=== PATIENT | female | born 1940 | race Caucasian/White ===

== ENCOUNTER 2022-07-08 10:12 | Emergency (ER) | payer MEDICARE, OTHER ==
--- NOTE | 2022-07-08 10:19 | ED General ---
General Stated Complaint: RT SIDE/FLANK PAIN History of Present Illness Date Seen by Provider: July 08, 2022 Time Seen by Provider: 10:18 Initial Comments 82-year-old female presents with right flank pain this been going on for about 4 days. She reports that happened when she was driving from [place]. That there is little bit of pain that radiates into her groin. She does have a history of colon cancer has a right-sided ostomy is working fine. She has some abnormality in the right lower part of her abdomen that they "do not know what it is" we will do surgery on it. She denies any nausea or vomiting. Reports that the pain gets worse with movement. She does have a history of liver cirrhosis. Allergies and Home Medications Allergies Coded Allergies: morphine (Verified Allergy, Unknown, 07/08/22) tetracycline (Verified Allergy, Unknown, 07/08/22) Patient Home Medication List Home Medication List Reviewed: Yes (7) Review of Systems Review of Systems Constitutional: No chills, No fever Respiratory: No cough, No short of breath Cardiovascular: No chest pain, No palpitations Gastrointestinal: abdominal pain Musculoskeletal: back pain (rt flank pain ) Skin: no symptoms reported Psychiatric/Neurological: No Symptoms Reported Hematologic/Lymphatic: No Symptoms Reported Immunological/Allergic: no symptoms reported Physical Exam Vital Signs Vital Signs - First Documented 07/08/22 10:21 Temp 36.0 Pulse 68 Resp 16 B/P (MAP) 166/52 (90) Pulse Ox 95 O2 Delivery Room Air Capillary Refill : Height, Weight, BMI Height: '" Weight: lbs. oz. kg; BMI Method: General Appearance: No Apparent Distress, WD/WN Neck: Normal Inspection, Non Tender Respiratory: Chest Non Tender, Lungs Clear Cardiovascular: Regular Rate, Rhythm, Normal Peripheral Pulses Gastrointestinal: Non Tender, Soft, Other (ostomy rlq) Back: CVA Tenderness (R) Extremity: Normal Capillary Refill, Normal Inspection, Normal Range of Motion Neurologic/Psychiatric: Alert, Oriented x3, Normal Mood/Affect Skin: Normal Color, Warm/Dry Progress/Results/Core Measures Suspected Sepsis SIRS Temperature: Pulse: Respiratory Rate: Blood Pressure / Mean: Results/Orders Lab Results Laboratory Tests Test 07/08/22 10:21 Range/Units Urine Color YELLOW Urine Clarity CLEAR Urine pH 6.0 5-9 Urine Specific [place] 1.020 1.016-1.022 Urine Protein NEGATIVE NEGATIVE Urine Glucose (UA) NEGATIVE NEGATIVE Urine Ketones NEGATIVE NEGATIVE Urine Nitrite NEGATIVE NEGATIVE Urine Bilirubin NEGATIVE NEGATIVE Urine Urobilinogen 0.2 < = 1.0 MG/DL Urine Leukocyte Esterase TRACE H NEGATIVE Urine RBC (Auto) NEGATIVE NEGATIVE Urine RBC NONE /HPF Urine WBC 0-2 /HPF Urine Squamous Epithelial Cells 0-2 /HPF Urine Renal Epithelial Cells RARE /HPF Urine Crystals NONE /LPF Urine Bacteria TRACE /HPF Urine Casts NONE /LPF Urine Mucus SMALL H /LPF Urine Culture Indicated NO My Orders Orders - SALVADOR,JAYME L DO Ua Culture If Indicated (07/08/22 10:38) Ct Abdomen/Pelvis Wo (07/08/22 10:38) Ketorolac Injection (Toradol Injection) (07/08/22 10:38) Orphenadrine Inj (Ed Only) (Norflex Inje (07/08/22 10:38) Vital Signs/I&O 07/08/22 10:21 Temp 36.0 Pulse 68 Resp 16 B/P (MAP) 166/52 (90) Pulse Ox 95 O2 Delivery Room Air Capillary Refill : Progress Note : Progress Note Patient's urine shows no acute findings. Patient CT was reviewed by me with final interpretation per radiology report. Patient's finding of subcutaneous air she reports that that area has been there for years although it started to g et a little bit worse. They are currently traveling from [place]. That she reports that they "do not know what is causing it" it is not a new finding. I discussed with her that if she feels is getting worse that they should follow-up once they get back home to [place] for further evaluation with her general surgeon. Patient's pain is consistent with more of a musculoskeletal type issue especially with her recent travel by car from [place]. I will provide her with muscle relaxant with baclofen, anti-inflammatory and a couple hydrocodone's. Patient's morbidity mortality is increased due to her social determinants of health and traveling. Diagnostic Imaging Diagonstic Imaging: CT Plain Films/CT/US/NM/MRI: abdomen Comments Date of Exam:07/08/22 CT ABDOMEN/PELVIS WO CT ABDOMEN/PELVIS WO TECHNIQUE: Unenhanced CT imaging of the abdomen and pelvis was performed. 2-D reformats are created and submitted for interpretation. Automatic exposure controls were utilized to optimize patient dose. INDICATION: Right flank pain. COMPARISON: None available. FINDINGS: Lower chest: The lung bases are clear. No pericardial or pleural effusion. Peritoneum: No free intraperitoneal air or fluid. Liver and biliary system: Nodular liver is indicative of cirrhosis. No focal hepatic lesion is seen by noncontrast imaging. Cholecystectomy. The common bile duct is dilated up to 1.9 cm and this is likely due to reservoir effect from prior cholecystectomy. Spleen and Pancreas: Spleen is normal. Unenhanced pancreas is grossly normal. Adrenals: Normal. tract: No renal or ureteral calculi. No obstructive uropathy. Hysterectomy. No adnexal mass. GI tract: Stomach is partially filled with fluid and air. No bowel obstruction. Prior distal colectomy with diverting left lower quadrant colostomy. No features of appendicitis. Vasculature and Lymph nodes: Normal caliber aorta. No abdominal or pelvic lymphadenopathy. Musculoskeletal: Prior ventral hernia repair with mesh present. No recurrent ventral hernia. There is a plaque-like area of induration of the subcutaneous fat of the right lower quadrant which may be due to prior surgery but is indeterminate. IMPRESSION: 1. No renal or ureteral stones. 2. Prior ventral hernia repair without recurrent hernia. No bowel obstruction. 3. Subcutaneous air and plaque-like soft tissue attenuation in the right lower quadrant may be from prior surgery. Correlation with physical exam is advised to assess for features of cellulitis. Reviewed: Reviewed by Me, Reviewed/Discussed Departure Impression Primary Impression: Right flank pain Disposition: 01 HOME, SELF-CARE Condition: Stable Departure-Patient Inst. Patient Instructions: Flank Pain, Low Back Pain (DC) Add. Discharge Instructions: 4% topical lidocaine with menthol, cream gel or patch use as directed on package. Warm moist heat to affected area for 10 to 15 minutes at a time 3-4 times daily. Please follow-up with your primary care provider and general surgeon when she get home for further evaluation of your swelling in the right lower abdomen. Scripts Hydrocodone/Acetaminophen (Hydrocodone-Acetamin 5-325 mg) 5 Mg-325 Mg Tablet 1 TAB PO Q8H PRN for PAIN-MODERATE (5-7), #5 TAB Prov: SALVADOR,JAYME L DO 07/08/22 Baclofen (Baclofen) 5 Mg Tablet 5 MG PO TID, #15 TAB Prov: SALVADOR,JAYME L DO 07/08/22 Naproxen (Naprosyn) 500 Mg Tablet 500 MG PO BID, #30 TAB 0 Refills Prov: JAYME SALVADOR DO 07/08/22 JAYME SALVADOR DO July 08, 2022 10:19
[2022-07-08] MEDS ORDERED: ORPHENADRINE 60 MG/2 ML (NORFLEX) AMP (ED ONLY) IM STA (10:38)
[2022-07-08] MEDS ORDERED: KETOROLAC 30 MG/ML VIAL IM STA (10:38)
[2022-07-08 10:45] LABS: BILIRUBIN,URINE NEGATIVE (NEGATIVE); CLARITY,URINE CLEAR; COLOR,URINE YELLOW; GLUCOSE, URINE (UA) NEGATIVE (NEGATIVE); KETONES,URINE NEGATIVE (NEGATIVE); LEUKOCYTE ESTERASE ,URINE TRACE (NEGATIVE); NITRITE,URINE NEGATIVE (NEGATIVE); PROTEIN,URINE NEGATIVE (NEGATIVE)
[2022-07-08 10:51] LABS: BACTERIA,URINE TRACE /HPF; SQUAMOUS EPITHELIAL CELL,UR 0-2 /HPF; WBC,URINE 0-2 /HPF
[2022-07-08 10:52] LABS: RENAL EPITHELIAL CELLS,URINE RARE /HPF
--- NOTE | 2022-07-08 11:47 | Diagnostic Imaging Report ---
CT ABDOMEN/PELVIS WO TECHNIQUE: Unenhanced CT imaging of the abdomen and pelvis was performed. 2-D reformats are created and submitted for interpretation. Automatic exposure controls were utilized to optimize patient dose. INDICATION: Right flank pain. COMPARISON: None available. FINDINGS: Lower chest: The lung bases are clear. No pericardial or pleural effusion. Peritoneum: No free intraperitoneal air or fluid. Liver and biliary system: Nodular liver is indicative of cirrhosis. No focal hepatic lesion is seen by noncontrast imaging. Cholecystectomy. The common bile duct is dilated up to 1.9 cm and this is likely due to reservoir effect from prior cholecystectomy. Spleen and Pancreas: Spleen is normal. Unenhanced pancreas is grossly normal. Adrenals: Normal. tract: No renal or ureteral calculi. No obstructive uropathy. Hysterectomy. No adnexal mass. GI tract: Stomach is partially filled with fluid and air. No bowel obstruction. Prior distal colectomy with diverting left lower quadrant colostomy. No features of appendicitis. Vasculature and Lymph nodes: Normal caliber aorta. No abdominal or pelvic lymphadenopathy. Musculoskeletal: Prior ventral hernia repair with mesh present. No recurrent ventral hernia. There is a plaque-like area of induration of the subcutaneous fat of the right lower quadrant which may be due to prior surgery but is indeterminate. IMPRESSION: 1. No renal or ureteral stones. 2. Prior ventral hernia repair without recurrent hernia. No bowel obstruction. 3. Subcutaneous air and plaque-like soft tissue attenuation in the right lower quadrant may be from prior surgery. Correlation with physical exam is advised to assess for features of cellulitis. Dictated by: Dictated on workstation # [id number]
[2022-07-08] MEDS ORDERED: ACHD5005 PO (12:03)
[2022-07-08] MEDS ORDERED: BACL5TAB PO (12:03)
[2022-07-08] MEDS ORDERED: NAPR-1071 PO (12:03)
[2022-07-08 12:04] VITALS: BP 163/52
== END 2022-07-08 12:05 | disposition home or self-care (01) ==
LOC: ER FS 10:14
DX: R10.9 Unspecified abdominal pain (principal); Z88.5 Allergy status to narcotic agent
CPT/HCPCS: 74176; 81000